=== PATIENT | female | born 1965 | race Caucasian/White ===

== ENCOUNTER 2023-05-13 19:19 | Emergency (ER) | payer OTHER, SELFPAY ==
--- NOTE | ~2023-05-13 | XR_ITS ---
EXAMINATION: XR chest 1V portable DATE: 05/13/2023 22:40 INDICATION: Cough. TECHNIQUE: A single frontal view of the chest was obtained. COMPARISON: None. FINDINGS: Calcified pulmonary nodules are consistent with old granulomatous disease. There are mild a irspace opacities in left mid and lower lung zones. No pleural effusion or pneumothorax. The heart si ze is normal. IMPRESSION: 1. Mild airspace opacities in left mid and lower lung zones, consistent with atelectasis versus pneum onia. Reviewed, dictated and finalized at location E. IMPRESSION: 1. Mild airspace opacities in left mid and lower lung zones, consistent with at electasis versus pneumonia.
[2023-05-13 19:41] VITALS: BP 148/74; PULSE 98; RESP 19; TEMP 37.3; O2SAT 97
--- NOTE | 2023-05-13 22:31 | ECG_ITS ---
Measurements Intervals [place] Rate: 104 P: 33 KS: 141 QRS: -10 QRSD: 97 T: 43 QT: 351 QTc: 462 Interpretive Statements SINUS TACHYCARDIA BORDERLINE R WAVE PROGRESSION, ANTERIOR LEADS BORDERLINE ECG NO PREVIOUS ECG AVAILABLE FOR COMPARISON Electronically Signed On 05-14-2023 7:56:51 CDT by Chintan Little D.O.
[2023-05-13] MEDS: KETOROLAC 15 MG/ML VIAL (*BKC) IV PUSH (22:53)
[2023-05-13] MEDS: diphenhydrAMINE HCl INJ 50 MG/ML VIAL 25 MG IV PUSH (22:58)
[2023-05-13] MEDS: PROCHLORPERAZINE EDISYLATE 10 MG/2 ML VIAL IV PUSH (22:58)
[2023-05-13] MEDS: SODIUM CHLORIDE 0.9% IV 1,000 ML 999 ML IV CONT (22:59)
--- NOTE | 2023-05-13 23:29 | ED.GENADULT ---
HPI - General Adult General Chief complaint: Headache Stated complaint: COVID positive, headache Time Seen by Provider: 05/13/23 21:40 History of Present Illness HPI narrative: a 58-year-old female presenting for rehab center for a headache. Patient was diagnosed with COVID this morning at 4:30 a.m. after she told nursing staff that she had is slightly irritated throat. Later that morning she developed a bandlike headache that was 10 out 10 intensity and has been slowly getting worse throughout the day. She has taken some Tylenol with some improvement. Patient denies visual changes loss of consciousness or any neurologic deficits. She denies chest pain difficulty breathing fever chills nausea vomiting or diarrhea. Patient is in rehab after developing lower extremity cellulitis and is recovering well. Related Data Allergies Allergy/AdvReac Type Severity Reaction Status Date / Time No Known Allergies Allergy Verified 05/13/23 19:46 Exam Narrative: APPEARANCE: No apparent distress. A&O x3 Head: atraumatic. EYES: EOMI, NOSE: Atraumatic NECK: Trachea midline,supple, no stiffness. RESPIRATORY: No increased rate of breathing, clear to auscultation CARDIOVASCULAR: RRR, no peripheral edema ABDOMINAL: Non-distended soft nontender no guarding rebound MUSCULOSKELETAl: No obvious deformities NEURO: Alert. Moving 4/4 extremities, Cranial nerves 2-12 grossly intact. Sensation light touch, motor function cerebellar function intact for 4 extremities. Gait exam was normal. SKIN:: Warm, dry. Normal color PSYCHIATRIC: Normal affect Course Vital Signs Vital signs: Vital Signs Temperature 99.1 F 05/13/23 19:41 Pulse Rate 98 05/13/23 19:41 Respiratory Rate 05/13/23 19:41 Blood Pressure 148/74 H 05/13/23 19:41 Pulse Oximetry 97 05/13/23 19:41 Oxygen Delivery Room Air 05/13/23 19:41 Temperature 99.1 F 05/13/23 19:41 Pulse Rate 98 05/13/23 19:41 Respiratory Rate 19 05/13/23 19:41 Blood Pressure 148/74 H 05/13/23 19:41 Pulse Oximetry 97 05/13/23 19:41 Oxygen Delivery Room Air 05/13/23 19:41 Medical Decision Making MDM Narrative Medical decision making narrative: -Course: 58-year-old female presenting with a COVID related headache. No concerning findings on history and physical. Well-appearing with stable vital signs. Chest x-ray showed some very mild infiltrates but the patient has no respiratory complaints and passed an ambulatory pulse ox without difficulty. Patient improved after migraine cocktail. She will be discharged back to the rehab center w/ return precautions. -DDX includes but is not limited to: Tension headache, migraine, viral headache, meningitis/ encephalitis ICH -Social determinants of health: Housewife, lives with . -Independent interpretation of studies: chest x-ray showed mild infiltrates. No respiratory complainst. -Dx tests considered but not ordered: CT head- no red flags on history and physical. Normal neurologic exam. Associated COVID illness. -Interventions: Benadryl, Compazine, normal saline, Toradol, Tylenol -Shared decision making / Disposition: discharged back to rehab center Vital Signs Vital Signs: Vital Signs Temperature 99.1 F 05/13/23 19:41 Pulse Rate 98 05/13/23 19:41 Respiratory Rate 19 05/13/23 19:41 Blood Pressure 148/74 H 05/13/23 19:41 Pulse Oximetry 97 05/13/23 19:41 Oxygen Delivery Room Air 05/13/23 19:41 Temperature 99.1 F 05/13/23 19:41 Pulse Rate 98 05/13/23 19:41 Respiratory Rate 19 05/13/23 19:41 Blood Pressure 148/74 H 05/13/23 19:41 Pulse Oximetry 97 05/13/23 19:41 Oxygen Delivery Room Air 05/13/23 19:41 Discharge Plan Discharge Clinical Impression: Headache, COVID Patient Disposition: NH [facility]As[facility] Living Condition: Stable Instructions: Antibiotic Form, Acute Headache (ED), COVID-19 (Coronavirus Disease 2019) (ED) Additional Instruct
[2023-05-14] MEDS: ACETAMINOPHEN 500 MG TABLET 1000 MG PO (00:58)
[2023-05-14 02:07] VITALS: BP 158/86; PULSE 77; RESP 16; O2SAT 98
== END 2023-05-14 02:09 ==
PROVIDERS: Emergency Provider Emergency Medicine
DX: U07.1 COVID-19 (principal); R51.9 Headache, unspecified; R00.0 Tachycardia, unspecified
CPT/HCPCS: 71045; 93005; 96361; 96374; 96375; 99284; A9270; J0780; J1200; J1885; J7030